=== PATIENT | female | born 1970 | race Two or more races ===

== ENCOUNTER 2022-02-01 08:11 | Outpatient (CLI) | payer OTHER | END 2022-02-01 08:23 | disposition home or self-care (01) | LOC: SONOGRAMA 08:11 | PROVIDERS: ATTEND Obstetrics & Gynecology | DX: N84.0 Polyp of corpus uteri (principal); N83.291 Other ovarian cyst, right side ==

== ENCOUNTER 2022-06-02 10:34 | Day surgery (SDC) | payer OTHER ==
[~2022-06-02] VITALS: Ht 172.7 cm; Wt 102.1 kg
== END 2022-06-02 19:55 | disposition home or self-care (01) ==
LOC: CIR.AMB 10:34
PROVIDERS: ATTEND Obstetrics & Gynecology
DX: N84.0 Polyp of corpus uteri (principal); Z88.0 Allergy status to penicillin; Z20.822 Contact with and (suspected) exposure to COVID-19